=== PATIENT | female | born 1980 | race Caucasian/White ===

== ENCOUNTER 2021-02-18 22:38 | Emergency (ER) | payer OTHER ==
[~2021-02-18 22:38] MED LIST: PROTONIX 40MG T40 MG PO
== END 2021-02-19 02:14 | disposition left against medical advice (07) ==
LOC: FER 22:38
DX: L02.412 Cutaneous abscess of left axilla (principal); Z53.8 Procedure and treatment not carried out for other reasons
CPT/HCPCS: 87070; 87077; 87186; 87205

== ENCOUNTER 2021-12-19 01:23 | Emergency (ER) | payer OTHER ==
[2021-12-19] MEDS ORDERED: NAPROXEN500 MG PO (03:22)
[2021-12-19] MEDS ORDERED: PERCOCET 5-3251 EACH PO (03:22)
== END 2021-12-19 04:46 | disposition home or self-care (01) ==
LOC: FER 01:23
DX: S82.51XA Displaced fracture of medial malleolus of right tibia, initial encounter for closed fracture (principal); S82.61XA Displaced fracture of lateral malleolus of right fibula, initial encounter for closed fracture; F17.210 Nicotine dependence, cigarettes, uncomplicated; W18.09XA Striking against other object with subsequent fall, initial encounter; Y92.009 Unspecified place in unspecified non-institutional (private) residence as the place of occurrence of the external cause
CPT/HCPCS: 73610; 96372; J1170

== ENCOUNTER → 2021-12-25 | Day surgery (SDC) | payer OTHER ==
[~2021-12-25] VITALS: Ht 162.6 cm; Wt 59.0 kg
[~2021-12-25] MED LIST changes: +NAPROXEN500 MG PO; +PERCOCET 5-3251 EACH PO
[2021-12-25 12:49] LABS: HCG (URINE) SCREEN NEGATIVE (NEGATIVE)
[2021-12-25 13:10] LABS: HCT 38.8 % (37.0-47.0); HGB 13.2 g/dl (12.5-16.0); MCH 33.3 pg (25.0-31.0); MPV 9.8 fL (6.0-9.5); RBC 3.96 M/uL (4.20-5.40); RDW 12.8 % (11.5-14.0)
[2021-12-25 13:35] LABS: ALBUMIN 3.3 g/dL (3.4-5.0); BILIRUBIN - TOTAL 0.2 mg/dL (0.2-1.0); BUN/CREAT RATIO (CALC) 25.7 RATIO; CREATININE 0.74 mg/dL (0.51-0.95); GLOBULIN (CALCULATION) 3.3 g/dL; POTASSIUM 3.8 mmol/L (3.5-5.1); TOTAL PROTEIN 6.6 g/dL (6.4-8.2)
== END | disposition home or self-care (01) ==
LOC: FAS 12:14
PROVIDERS: Orthopaedic Surgery
DX: S82.841A Displaced bimalleolar fracture of right lower leg, initial encounter for closed fracture (principal); M24.871 Other specific joint derangements of right ankle, not elsewhere classified; W19.XXXA Unspecified fall, initial encounter
CPT/HCPCS: 36415; 73600; 76000; 80053; 84703; J0690; J1100; J1170; J2250; J2405; J2704; J2795; J3010; J7120

== ENCOUNTER 2022-01-06 10:34 | Emergency (ER) | payer OTHER ==
[2022-01-06] MEDS ORDERED: PERCOCET 5-3251 EACH PO (12:20)
== END 2022-01-06 13:19 | disposition home or self-care (01) ==
LOC: FER 10:34
DX: G89.18 Other acute postprocedural pain (principal); M79.671 Pain in right foot; Z28.310 Unvaccinated for COVID-19
CPT/HCPCS: 99283